=== PATIENT | female | born 1955 | race Two or more races ===

== ENCOUNTER → 2016-10-06 | Outpatient (CLI) | payer OTHER ==
[~2016-10-06] MED LIST: ATOR40TA28 PO; BUPR300T53 PO; FURO40TA5 PO; METF10002 PO; SERT100T12 PO; SPIR25TA4 PO; THEO400T3 PO
== END | disposition home or self-care (01) ==
LOC: RADPV 13:08
PROVIDERS: ATTEND Hospitalist
DX: N18.2 Chronic kidney disease, stage 2 (mild) (principal)
CPT/HCPCS: 76770

== ENCOUNTER 2016-10-14 14:59 | Inpatient (IN) | payer OTHER ==
[~2016-10-14] VITALS: Ht 162.6 cm; Wt 110.4 kg
[2016-10-14 15:12] LABS: GLUCOSE,POINT OF CARE 179 MG/DL (70-110)
[2016-10-14] MEDS ORDERED: GuaiFENesin/D-METHORPHAN [SUGAR-FREE] 200-20MG/10 ML SYRUP UDCUP PO ONE (18:30)
[2016-10-14] MEDS ORDERED: MethylPREDNISolone SOD SUCC 125 MG/2 ML VIAL IVP ONE (18:30)
[2016-10-14] MEDS ORDERED: ALBUTEROL SULFATE 5 MG/ML 20 ML NEB SOLN [BULK] NEB ONE (18:30)
[2016-10-14] MEDS ORDERED: CefTRIAXone 1 GM/DEXTROSE 50 ML IV ONE (18:30)
[2016-10-14] MEDS ORDERED: ACETAMINOPHEN 500 MG TABLET PO ONE (18:30)
[2016-10-14] MEDS ORDERED: IPRATROPIUM BROMIDE 0.5 MG/2.5 ML NEB SOLUTION NEB ONE (18:30)
[2016-10-14] MEDS ORDERED: 0.9% SODIUM CHLORIDE 5 ML NEB SOLUTION NEB ONE ×2 (18:47→22:56)
[2016-10-14 18:54] LABS: CALCIUM, TOTAL 10.3 mg/dL (8.8-10.5); CREATININE 1.39 mg/dL (0.60-1.30)
[2016-10-14 19:01] LABS: ALBUMIN 3.9 g/dL (3.4-5.0); BILIRUBIN,TOTAL 0.3 mg/dL (0.1-1.0); TOTAL PROTEIN, SERUM 7.7 g/dL (6.4-8.2)
[2016-10-14 19:03] LABS: BASOPHILS % (AUTO) 0.3 % (0.0-2.0); EOSINOPHILS % (AUTO) 0 % (1.0-6.0); HEMATOCRIT 35.9 % (36-46); LACTIC ACID 1.7 mmol/L (0.4-2.0); LYMPHOCYTES # (AUTO) 2.3 K/uL (1.0-4.8); LYMPHOCYTES % (AUTO) 17.4 % (22.0-44.0); MEAN CORPUSCULAR HGB CONC 33.4 G/dL (31.0-37.0); MEAN CORPUSCULAR VOLUME 81 fL (80-100); MONOCYTES # (AUTO) 1.4 K/uL (0.1-1.0); MONOCYTES % (AUTO) 10.9 % (2.0-9.0); NEUTROPHILS # (AUTO) 9.3 K/uL (1.8-7.7); NEUTROPHILS % (AUTO) 71.4 % (40.0-70.0); PLATELET COUNT (AUTO) 378 K/uL (150-450); RED BLOOD CELL COUNT(AUTO) 4.43 MIL/uL (4.00-5.20); RED CELL DISTRIBUTION WIDTH 17.7 % (11.5-14.5)
[2016-10-14 19:22] LABS: RBC MORPHOLOGY COMMENT ABNORMAL RBC MORPH
[2016-10-14 19:34] LABS: INFLUENZA TYPE B NEGATIVE FOR TYPE B (NEGATIVE)
[2016-10-14] MEDS ORDERED: ONDANSETRON HCL 4 MG/2 ML VIAL IVP PRN (19:45)
[2016-10-14] MEDS ORDERED: 0.9% SODIUM CHLORIDE 10 ML SYRINGE IVP PRN (19:45)
[2016-10-14] MEDS ORDERED: ACETAMINOPHEN 325 MG TABLET PO PRN ×2 (19:45→21:45)
[2016-10-14 20:19] VITALS: BP 128/75
[2016-10-14] MEDS: OXYGEN THERAPY IH SCH (20:35)
[2016-10-14] MEDS ORDERED: CLOP75TA32 PO (20:57)
[2016-10-14] MEDS ORDERED: ASPI-556 PO (20:57)
[2016-10-14] MEDS ORDERED: BIOT5000 PO (20:57)
[2016-10-14] MEDS ORDERED: METF500T PO ×2 (20:57)
[2016-10-14] MEDS ORDERED: SPIR25TA PO (20:57)
[2016-10-14] MEDS ORDERED: ARIP5TAB9 PO (20:57)
[2016-10-14] MEDS ORDERED: CHOL200018 PO (20:57)
[2016-10-14] MEDS ORDERED: SERT100T12 PO (20:57)
[2016-10-14] MEDS ORDERED: MULT-1268 PO (20:57)
[2016-10-14] MEDS ORDERED: LISI2.5T2 PO (20:57)
[2016-10-14] MEDS ORDERED: BUME1TAB12 PO (20:57)
[2016-10-14] MEDS ORDERED: BUPR150T3 PO (20:57)
[2016-10-14] MEDS ORDERED: ATOR20TA65 PO (20:57)
[2016-10-14] MEDS ORDERED: THEO300C5 PO (20:57)
[2016-10-14] MEDS ORDERED: UBID50TA3 PO (20:57)
[2016-10-14] MEDS ORDERED: DEXTROSE 50%-WATER 25 GM/50 ML SYRINGE IVP PRN ×2 (21:00→21:45)
[2016-10-14] MEDS: INSULIN ASPART 100 UNITS/ML SQ PRN (21:06)
[2016-10-14 21:07] LABS: GLUCOSE COMMENT 1 Received Meds; GLUCOSE,POINT OF CARE 216 MG/DL (70-110)
[2016-10-14] MEDS ORDERED: BISACODYL 10 MG RECTAL RECTAL SUPPOSITORY PR PRN (21:45)
[2016-10-14] MEDS ORDERED: OxyCODONE HCL/ACETAMINOPHEN 5-325 MG TABLET PO PRN (21:45)
[2016-10-14] MEDS ORDERED: MAGNESIUM HYDROXIDE SUSPENSION 30 ML UDCUP PO PRN (21:45)
[2016-10-14] MEDS ORDERED: POTASSIUM CHLORIDE 20 MEQ ER TABLET PO PRN (21:45)
[2016-10-14] MEDS ORDERED: POTASSIUM CHL 10 MEQ/WATER 50 ML IV PRN (21:45)
[2016-10-14] MEDS ORDERED: ALBUTEROL SULFATE 2.5 MG/0.5 ML NEB SOLUTION NEB SCH (23:00)
[2016-10-14] MEDS ORDERED: IPRATROPIUM BROMIDE 0.5 MG/2.5 ML NEB SOLUTION NEB SCH (23:00)
[2016-10-14] MEDS: ALBUTEROL SULFATE 2.5 MG/0.5 ML NEB SOLUTION NEB PRN (23:01)
[2016-10-14] MEDS: IPRATROPIUM BROMIDE 0.5 MG/2.5 ML NEB SOLUTION NEB PRN (23:01)
[2016-10-14] MEDS ORDERED: SODIUM CHLORIDE 0.9% 500 ML IV ONE (23:06)
[2016-10-14] MEDS: HEPARIN SODIUM,PORCINE 5,000 UNITS/ML VIAL SQ SCH (23:08)
[2016-10-14] MEDS: MethylPREDNISolone SOD SUCC 125 MG/2 ML VIAL IVP SCH (23:09)
[2016-10-14] MEDS: ATORVASTATIN CALCIUM 40 MG TABLET PO SCH (23:09)
[2016-10-14] MEDS: SERTRALINE HCL 100 MG TABLET PO SCH (23:10)
[2016-10-14] MEDS: AZITHROMYCIN 500 MG/NS 250 ML IV SCH (23:11)
[2016-10-15] VITALS (7 sets, daily range): BP systolic 128–158; BP diastolic 69–87
[2016-10-15] MEDS: ALBUTEROL SULFATE 2.5 MG/0.5 ML NEB SOLUTION NEB PRN ×4 (03:11→20:58)
[2016-10-15] MEDS: IPRATROPIUM BROMIDE 0.5 MG/2.5 ML NEB SOLUTION NEB PRN ×4 (03:11→20:58)
[2016-10-15] MEDS: INSULIN ASPART 100 UNITS/ML SQ PRN ×4 (05:36→21:10)
[2016-10-15] MEDS: MethylPREDNISolone SOD SUCC 125 MG/2 ML VIAL IVP SCH ×4 (05:36→23:34)
[2016-10-15 05:51] LABS: BASOPHILS % (AUTO) 0.2 % (0.0-2.0); EOSINOPHILS % (AUTO) 0 % (1.0-6.0); HEMATOCRIT 33.3 % (36-46); HEMOGLOBIN 11.2 g/dL (12.0-16.0); LYMPHOCYTES % (AUTO) 7.7 % (22.0-44.0); MEAN CORPUSCULAR HEMOGLOBIN 27.5 pg (26.0-34.0); MEAN CORPUSCULAR HGB CONC 33.7 G/dL (31.0-37.0); MEAN CORPUSCULAR VOLUME 82 fL (80-100); MONOCYTES # (AUTO) 0.1 K/uL (0.1-1.0); MONOCYTES % (AUTO) 1.2 % (2.0-9.0); NEUTROPHILS # (AUTO) 11.4 K/uL (1.8-7.7); PLATELET COUNT (AUTO) 361 K/uL (150-450); RED BLOOD CELL COUNT(AUTO) 4.08 MIL/uL (4.00-5.20); RED CELL DISTRIBUTION WIDTH 17.6 % (11.5-14.5); WHITE BLOOD COUNT (AUTO) 12.5 K/uL (4.5-11.0)
[2016-10-15 06:02] LABS: CALCIUM, TOTAL 9.8 mg/dL (8.8-10.5); CREATININE 1.42 mg/dL (0.60-1.30); POTASSIUM 4.2 mmol/L (3.5-5.1)
[2016-10-15 06:08] LABS: GLUCOSE COMMENT 1 Received Meds; GLUCOSE,POINT OF CARE 290 MG/DL (70-110)
[2016-10-15 06:43] LABS: NEUTROPHILS % (AUTO) 90.9 % (40.0-70.0)
[2016-10-15] MEDS: HEPARIN SODIUM,PORCINE 5,000 UNITS/ML VIAL SQ SCH ×3 (07:47→23:35)
[2016-10-15] MEDS: PANTOPRAZOLE SODIUM 40 MG DR TABLET PO SCH (07:47)
[2016-10-15] MEDS: CLOPIDOGREL BISULFATE 75 MG TABLET PO SCH (07:47)
[2016-10-15] MEDS: DOCUSATE SODIUM 100 MG CAPSULE PO SCH ×2 (07:48→21:10)
[2016-10-15] MEDS: ARIPiprazole 5 MG TABLET PO SCH (07:48)
[2016-10-15] MEDS: BUMETANIDE 1 MG TABLET PO SCH (07:48)
[2016-10-15] MEDS: ASPIRIN 81 MG CHEWABLE TABLET PO SCH (07:48)
[2016-10-15] MEDS: OXYGEN THERAPY IH SCH ×2 (07:48→21:10)
[2016-10-15 07:53] LABS: RBC MORPHOLOGY COMMENT ABNORMAL RBC MORPH
[2016-10-15 12:07] LABS: GLUCOSE COMMENT 1 Received Meds; GLUCOSE,POINT OF CARE 284 MG/DL (70-110)
[2016-10-15 17:42] LABS: GLUCOSE COMMENT 1 Received Meds; GLUCOSE,POINT OF CARE 251 MG/DL (70-110)
[2016-10-15] MEDS: AZITHROMYCIN 500 MG/NS 250 ML IV SCH (21:10)
[2016-10-15] MEDS: ATORVASTATIN CALCIUM 40 MG TABLET PO SCH (21:10)
[2016-10-15] MEDS: SERTRALINE HCL 100 MG TABLET PO SCH (21:10)
[2016-10-15 21:43] LABS: GLUCOSE COMMENT 1 Received Meds; GLUCOSE,POINT OF CARE 296 MG/DL (70-110)
[2016-10-16] MEDS: ALBUTEROL SULFATE 2.5 MG/0.5 ML NEB SOLUTION NEB PRN ×3 (01:38→23:28)
[2016-10-16] MEDS: IPRATROPIUM BROMIDE 0.5 MG/2.5 ML NEB SOLUTION NEB PRN ×3 (01:38→23:28)
[2016-10-16] MEDS: MethylPREDNISolone SOD SUCC 125 MG/2 ML VIAL IVP SCH (05:38)
[2016-10-16] MEDS: INSULIN ASPART 100 UNITS/ML SQ PRN ×4 (05:39→20:23)
[2016-10-16 06:22] VITALS: BP 137/76
[2016-10-16 07:08] LABS: GLUCOSE COMMENT 1 Received Meds; GLUCOSE,POINT OF CARE 282 MG/DL (70-110)
[2016-10-16] MEDS: OXYGEN THERAPY IH SCH ×2 (08:00→20:50)
[2016-10-16 08:23] VITALS: BP 135/80
[2016-10-16] MEDS: PANTOPRAZOLE SODIUM 40 MG DR TABLET PO SCH (08:45)
[2016-10-16] MEDS: DOCUSATE SODIUM 100 MG CAPSULE PO SCH ×2 (08:45→20:50)
[2016-10-16] MEDS: ASPIRIN 81 MG CHEWABLE TABLET PO SCH (08:45)
[2016-10-16] MEDS: HEPARIN SODIUM,PORCINE 5,000 UNITS/ML VIAL SQ SCH ×3 (08:45→22:50)
[2016-10-16] MEDS: BUMETANIDE 1 MG TABLET PO SCH (08:45)
[2016-10-16] MEDS: CLOPIDOGREL BISULFATE 75 MG TABLET PO SCH (08:45)
[2016-10-16] MEDS: ARIPiprazole 5 MG TABLET PO SCH (08:45)
[2016-10-16] MEDS: PredniSONE 20 MG TABLET PO SCH (11:08)
[2016-10-16 11:48] LABS: GLUCOSE COMMENT 1 Received Meds; GLUCOSE,POINT OF CARE 344 MG/DL (70-110)
[2016-10-16 12:29] VITALS: BP 128/81
[2016-10-16 16:21] VITALS: BP 160/85
[2016-10-16 17:43] LABS: GLUCOSE COMMENT 1 Received Meds; GLUCOSE,POINT OF CARE 267 MG/DL (70-110)
[2016-10-16 19:45] VITALS: BP 136/74
[2016-10-16] MEDS: ATORVASTATIN CALCIUM 40 MG TABLET PO SCH (20:16)
[2016-10-16] MEDS: SERTRALINE HCL 100 MG TABLET PO SCH (20:16)
[2016-10-16 22:37] LABS: GLUCOSE COMMENT 1 Received Meds; GLUCOSE,POINT OF CARE 324 MG/DL (70-110)
[2016-10-16] MEDS: AZITHROMYCIN 500 MG/NS 250 ML IV SCH (22:50)
[2016-10-16 23:34] VITALS: BP 136/88
[2016-10-17 04:47] VITALS: BP 134/75
[2016-10-17] MEDS: INSULIN ASPART 100 UNITS/ML SQ PRN ×2 (06:03→11:28)
[2016-10-17 07:17] LABS: GLUCOSE COMMENT 1 Received Meds; GLUCOSE,POINT OF CARE 173 MG/DL (70-110)
[2016-10-17 07:46] VITALS: BP 146/73
[2016-10-17] MEDS: HEPARIN SODIUM,PORCINE 5,000 UNITS/ML VIAL SQ SCH (08:04)
[2016-10-17] MEDS: PredniSONE 20 MG TABLET PO SCH (08:04)
[2016-10-17] MEDS: DOCUSATE SODIUM 100 MG CAPSULE PO SCH (08:05)
[2016-10-17] MEDS: ASPIRIN 81 MG CHEWABLE TABLET PO SCH (08:05)
[2016-10-17] MEDS: PANTOPRAZOLE SODIUM 40 MG DR TABLET PO SCH (08:05)
[2016-10-17] MEDS: CLOPIDOGREL BISULFATE 75 MG TABLET PO SCH (08:05)
[2016-10-17] MEDS: BUMETANIDE 1 MG TABLET PO SCH (08:11)
[2016-10-17] MEDS: OXYGEN THERAPY IH SCH (08:16)
[2016-10-17] MEDS: ARIPiprazole 5 MG TABLET PO SCH (08:17)
[2016-10-17] MEDS: ALBUTEROL SULFATE 2.5 MG/0.5 ML NEB SOLUTION NEB PRN ×2 (08:40→12:54)
[2016-10-17] MEDS: IPRATROPIUM BROMIDE 0.5 MG/2.5 ML NEB SOLUTION NEB PRN ×2 (08:40→12:54)
[2016-10-17] MEDS ORDERED: PRED10 PO (10:37)
[2016-10-17] MEDS ORDERED: AZIT250T6 PO (10:37)
[2016-10-17] MEDS ORDERED: FLUTICASONE PROPIONATE 50 MCG/SPRAY 16 GM NASAL SPRAY NASAL SCH (11:00)
[2016-10-17 11:37] LABS: GLUCOSE COMMENT 1 Received Meds; GLUCOSE,POINT OF CARE 250 MG/DL (70-110)
[2016-10-17 12:21] VITALS: BP 135/75
== END 2016-10-17 17:30 | disposition home or self-care (01) | DRG 133 ==
LOC: EMS 15:00 → 6N 19:00
PROVIDERS: ADMIT Internal Medicine; ATTEND Internal Medicine
DX: J96.01 Acute respiratory failure with hypoxia (principal); E11.22 Type 2 diabetes mellitus with diabetic chronic kidney disease; J44.0 Chronic obstructive pulmonary disease with (acute) lower respiratory infection; E44.0 Moderate protein-calorie malnutrition; J45.901 Unspecified asthma with (acute) exacerbation; I11.0 Hypertensive heart disease with heart failure; I50.9 Heart failure, unspecified; Z68.41 Body mass index [BMI] 40.0-44.9, adult; J44.1 Chronic obstructive pulmonary disease with (acute) exacerbation; J20.9 Acute bronchitis, unspecified; E11.65 Type 2 diabetes mellitus with hyperglycemia; F29 Unspecified psychosis not due to a substance or known physiological condition; E66.01 Morbid (severe) obesity due to excess calories; I25.10 Atherosclerotic heart disease of native coronary artery without angina pectoris; Z87.891 Personal history of nicotine dependence; Z95.5 Presence of coronary angioplasty implant and graft; Z90.49 Acquired absence of other specified parts of digestive tract; Z90.710 Acquired absence of both cervix and uterus; Z79.899 Other long term (current) drug therapy; I13.0 Hypertensive heart and chronic kidney disease with heart failure and stage 1 through stage 4 chronic kidney disease, or unspecified chronic kidney disease; N18.2 Chronic kidney disease, stage 2 (mild)
CPT/HCPCS: 71020; 82962; 83605; 87040; 87804; 93005; 93306; 94060; 94640; 94644; 96374; 96375; 99285; J0456; J0696; J1644; J2930; J7040

== ENCOUNTER 2017-03-25 06:18 | Day surgery (SDC) | payer OTHER ==
[~2017-03-25] VITALS: Ht 162.6 cm; Wt 104.5 kg
[~2017-03-25 06:18] MED LIST changes: +ARIP5TAB8 PO; +ASPI-556 PO; +ATOR20TA65 PO; +AZIT250T9 PO; +BIOT5000 PO; +BUME1TAB12 PO; +BUPR150T3 PO; -BUPR300T53 PO; +CHOL200018 PO; +CLOP75TA32 PO; -FURO40TA5 PO; +LISI2.5T2 PO; -METF10002 PO; +METF500T PO; +MULT-1268 PO; +PRED10 PO; -SPIR25TA4 PO; -THEO400T3 PO
[2017-03-25] MEDS ORDERED: ALBUTEROL SULFATE 2.5 MG/0.5 ML NEB SOLUTION NEB ONE (06:19)
[2017-03-25] MEDS ORDERED: LIDOCAINE HCL 2% 5 ML JELLY TP ONE (06:19)
[2017-03-25] MEDS ORDERED: LIDOCAINE HCL 4% 50 ML SOLUTION TP ONE (06:19)
[2017-03-25] MEDS ORDERED: EPINEPHrine 1:1,000 [1 MG/ML] AMP IM ONE (06:19)
[2017-03-25] MEDS ORDERED: BENZOCAINE 20% 50 MCG/SPRAY 57 GM TP ONE (06:19)
[2017-03-25] MEDS ORDERED: SODIUM CHLORIDE 0.9% 1,000 ML IV ONE ×2 (06:30→06:33)
[2017-03-25 07:21] LABS: GLUCOMETER DEV NAME(LOC) SDS 5; GLUCOSE,POINT OF CARE 173 MG/DL (70-110)
[2017-03-25] MEDS ORDERED: FAMO20 PO (07:21)
[2017-03-25] MEDS ORDERED: COMBISP IH (07:21)
[2017-03-25] MEDS ORDERED: CINN500C4 PO (07:21)
[2017-03-25] MEDS ORDERED: BECL8.7A7 IH (07:21)
[2017-03-25] MEDS ORDERED: SPIR25 PO (07:21)
[2017-03-25] MEDS ORDERED: MOME13HF IH (07:21)
[2017-03-25] MEDS ORDERED: [UNRECOGNIZED DRUG - CODE] PO (07:21)
[2017-03-25] MEDS ORDERED: CYAN100072 PO (07:21)
[2017-03-25] MEDS ORDERED: FLUT16H NASAL (07:21)
[2017-03-25] MEDS ORDERED: TIOT4MIS2 IH (07:21)
[2017-03-25] MEDS ORDERED: VITAD1000 PO (07:25)
[2017-03-25] MEDS ORDERED: CETI-290 PO (07:25)
[2017-03-25] MEDS ORDERED: UBID10CA6 PO (07:25)
[2017-03-25] MEDS ORDERED: FentaNYL CITRATE-PF 100 MCG/2 ML VIAL ONE (07:51)
[2017-03-25] MEDS ORDERED: MIDAZOLAM HCL 2 MG/2 ML VIAL ONE (07:51)
[2017-03-25] MEDS ORDERED: MethylPREDNISolone SOD SUCC 125 MG/2 ML VIAL IVP ONE (08:45)
[2017-03-25] MEDS ORDERED: MethylPREDNISolone SOD SUCC 125 MG/2 ML VIAL ONE (08:46)
[2017-03-25] MEDS ORDERED: OXYGEN THERAPY IH SCH (20:00)
== END 2017-03-25 10:55 | disposition home or self-care (01) ==
LOC: SURGERY 06:18
PROVIDERS: ATTEND Internal Medicine Critical Care Medicine
DX: J38.4 Edema of larynx (principal); B37.0 Candidal stomatitis; J84.111 Idiopathic interstitial pneumonia, not otherwise specified; J44.9 Chronic obstructive pulmonary disease, unspecified; I10 Essential (primary) hypertension; E11.9 Type 2 diabetes mellitus without complications; Z87.891 Personal history of nicotine dependence; Z98.890 Other specified postprocedural states; Z79.82 Long term (current) use of aspirin; Z79.84 Long term (current) use of oral hypoglycemic drugs; Z79.899 Other long term (current) drug therapy
CPT/HCPCS: 31623; 31624; 71045; 82962; 87015; 87070; 87147; 87205; 87220; 88108; 88184; 88185; 88312; 93005; J0171; J2250; J2930; J3010; J7030

== ENCOUNTER 2022-12-23 13:21 | Emergency (ER) | payer MEDICARE, OTHER ==
[~2022-12-23] VITALS: Ht 167.6 cm; Wt 88.6 kg
[~2022-12-23 13:21] MED LIST changes: +ARIP5TAB37 PO; -ARIP5TAB8 PO; -ATOR20TA65 PO; +AZIT-103 PO; -AZIT250T9 PO; +BECL8.7A7 IH; -BUME1TAB12 PO; +BUME1TAB6 PO; +CETI-450 PO; +CINN500C4 PO; +COMBISP IH; +CYAN100072 PO; +FAMO20 PO; +FLUT16SP NASAL; +LISI2.5T13 PO; -LISI2.5T2 PO; +MOME13HF11 IH; +PRED-729 PO; -PRED10 PO; +SERT-440 PO; -SERT100T12 PO; +SPIR-37 PO; +TIOT4MIS2 IH; +UBID10CA6 PO; +[UNRECOGNIZED DRUG - CODE] PO
[2022-12-23 14:06] VITALS: TEMP 98.8
[2022-12-23 16:03] LABS: BASOPHILS % (AUTO) 0.4 % (0.0-2.0); EOSINOPHILS % (AUTO) 0.5 % (1.0-6.0); HEMATOCRIT 34.9 % (36-46); HEMOGLOBIN 11.6 g/dL (12.0-16.0); LYMPHOCYTES # (AUTO) 2.6 K/uL (1.0-4.8); LYMPHOCYTES % (AUTO) 27.8 % (22.0-44.0); MEAN CORPUSCULAR HEMOGLOBIN 28.6 pg (26.0-34.0); MEAN CORPUSCULAR HGB CONC 33.3 G/dL (31.0-37.0); MEAN CORPUSCULAR VOLUME 86 fL (80-100); MONOCYTES # (AUTO) 0.7 K/uL (0.1-1.0); MONOCYTES % (AUTO) 7.7 % (2.0-9.0); NEUTROPHILS % (AUTO) 63.6 % (40.0-70.0); PLATELET COUNT (AUTO) 276 K/uL (150-450); RED BLOOD CELL COUNT(AUTO) 4.06 MIL/uL (4.00-5.20); RED CELL DISTRIBUTION WIDTH 17.9 % (11.5-14.5); WHITE BLOOD COUNT (AUTO) 9.5 K/uL (4.5-11.0)
[2022-12-23 16:05] LABS: PH,URINE DRUG SCREEN 5.5 (5.0-8.0)
[2022-12-23 16:09] LABS: AMPHET/METH SCREEN,URINE NEGATIVE (NEGATIVE); BARBITURATE SCREEN, URINE NEGATIVE (NEGATIVE); BENZODIAZEPINES SCREEN,URINE NEGATIVE (NEGATIVE); CANNABINOID SCREEN,URINE NEGATIVE (NEGATIVE); COCAINE SCREEN,URINE NEGATIVE (NEGATIVE); METHADONE SCREEN, URINE NEGATIVE (NEGATIVE); OPIATE SCREEN,URINE NEGATIVE (NEGATIVE); PHENCYCLIDINE SCREEN,URINE NEGATIVE (NEGATIVE)
[2022-12-23 16:13] LABS: ALCOHOL, URINE DRUG SCREEN NEGATIVE (NEGATIVE)
[2022-12-23] MEDS ORDERED: LORazepam 2 MG TABLET PO ONE (16:15)
[2022-12-23 16:24] LABS: ANION GAP 5 mmol/L (8-16); CALCIUM, TOTAL 8.8 mg/dL (8.8-10.5); CARBON DIOXIDE 31 mmol/L (22-29); CHLORIDE 101 mmol/L (98-107); CREATININE 1.48 mg/dL (0.60-1.30); GLOMERULAR FILTR. RATE CALC 35 mL/min (>60); GLUCOSE,RANDOM 205 mg/dL (70-110); POTASSIUM 3.8 mmol/L (3.5-5.1); SODIUM SERUM 137 mmol/L (136-145); UREA NITROGEN, BLOOD 30 mg/dL (7-18)
[2022-12-23 16:28] LABS: ALANINE AMINOTRANSFERASE 27 U/L (12-78); ALBUMIN 3.3 g/dL (3.4-5.0); ALKALINE PHOSPHATASE 91 U/L (46-116); ASPARTATE AMINOTRANSFERASE 13 U/L (15-37); BILIRUBIN,TOTAL 0.2 mg/dL (0.1-1.0); TOTAL PROTEIN, SERUM 6.4 g/dL (6.4-8.2)
[2022-12-23 16:30] LABS: COVID AG,FIA SOURCE NASAL SWAB
[2022-12-23 16:30] LABS: ALCOHOL, BLOOD (SERUM) < 3 mg/dL (0-10)
[2022-12-23 16:46] LABS: SARS-COV2 (COVID) ANTIGEN,FIA Negative (Negative)
[2022-12-23 17:43] VITALS: BP 120/65; PULSE 78; RESP 18
== END 2022-12-23 17:56 | disposition home or self-care (01) ==
LOC: EMS 13:55
DX: F31.9 Bipolar disorder, unspecified (principal); J44.9 Chronic obstructive pulmonary disease, unspecified; E11.22 Type 2 diabetes mellitus with diabetic chronic kidney disease; E11.65 Type 2 diabetes mellitus with hyperglycemia; N18.9 Chronic kidney disease, unspecified; I50.9 Heart failure, unspecified; Z90.49 Acquired absence of other specified parts of digestive tract; Z90.710 Acquired absence of both cervix and uterus; Z98.890 Other specified postprocedural states; Z20.822 Contact with and (suspected) exposure to COVID-19
CPT/HCPCS: 99284; 87426; 80053; 82962; 85025; 36415; 80307; G0480